=== PATIENT | female | born 1960 | race Caucasian/White ===

== ENCOUNTER 2019-08-10 15:48 | Emergency (ER) | payer OTHER ==
[~2019-08-10] VITALS: Ht 157.5 cm; Wt 65.8 kg
[~2019-08-10 15:48] MED LIST: FORTAMET500 MG; GILTUSS TR TAB1 EACH PO; PAXIL10 MG/5 ML; XANAX0.25 MG
== END 2019-08-10 17:43 | disposition home or self-care (01) ==
LOC: ER 15:48
DX: R51 Headache (principal); F41.8 Other specified anxiety disorders

== ENCOUNTER 2020-02-26 10:23 | Emergency (ER) | payer OTHER ==
[~2020-02-26] VITALS: Ht 160 cm; Wt 61.2 kg
[2020-02-26] MEDS ORDERED: CLONAZEPAM1 MG PO (10:34)
[2020-02-26] MEDS ORDERED: LITHIUM8 MEQ/5 ML PO (10:36)
[2020-02-26] MEDS ORDERED: ZITHROMAX500 MG PO (14:50)
[2020-02-26] MEDS ORDERED: TUSNEL LIQUID178 ML PO (14:50)
[2020-02-26] MEDS ORDERED: SINGULAIR 10MG10 MG PO (14:50)
[2020-02-26] MEDS ORDERED: XOPENEX0.63 MG/3 IH (14:50)
== END 2020-02-26 16:04 | disposition home or self-care (01) ==
LOC: ER 10:23
DX: J45.998 Other asthma (principal); Z03.818 Encounter for observation for suspected exposure to other biological agents ruled out; R06.02 Shortness of breath